=== PATIENT | male | born 1985 | race Caucasian/White ===

== ENCOUNTER 2016-12-18 17:21 | Emergency (ER) | payer OTHER ==
[2016-12-18 19:51] VITALS: BP 122/87
== END 2016-12-18 19:51 | disposition home or self-care (01) ==
LOC: ED 17:21
DX: J02.9 Acute pharyngitis, unspecified (principal); J06.9 Acute upper respiratory infection, unspecified
CPT/HCPCS: J1100; J1885; J7613